=== PATIENT | female | born 1985 | race Caucasian/White ===

== ENCOUNTER 2017-06-18 04:47 | Inpatient (IN) | payer OTHER ==
[~2017-06-18] VITALS: Ht 167.6 cm; Wt 99.5 kg
[2017-06-18] MEDS ORDERED: OXYTOCIN 30U/ 0.9% NaCL 500ML 500 ML IV ONE (05:33)
[2017-06-18] MEDS ORDERED: OXYTOCIN 30U/ 0.9% NaCL 500ML 500 ML IV PRN ×2 (05:33→20:05)
[2017-06-18] MEDS ORDERED: METOCLOPRAMIDE 5 MG/ML, 2ML IVPush PRN (06:00)
[2017-06-18] MEDS ORDERED: CALCIUM CARBONATE 500 MG TAB.CHEW PO PRN (06:00)
[2017-06-18] MEDS ORDERED: PENICILLIN GK 5,000,000 UNITS in DEXTROSE 5% 100 ML IVPB ONE (06:00)
[2017-06-18] MEDS ORDERED: PLEASE ENTER ALLERGIES MC SCH ×2 (06:00)
[2017-06-18] MEDS ORDERED: PLEASE ENTER HEIGHT AND WEIGHT MC SCH (06:00)
[2017-06-18] MEDS ORDERED: FENTANYL PF 100 MCG/2ML IVPush PRN (06:00)
[2017-06-18] MEDS ORDERED: ONDANSETRON 2MG/ML, 2ML IVPush PRN (06:00)
[2017-06-18] MEDS ORDERED: TERBUTALINE 1 MG/ML, 1ML IVPush PRN (06:00)
[2017-06-18] MEDS ORDERED: SODIUM CITRATE/CITRIC ACID 30 ML UDC PO PRN (06:00)
[2017-06-18] MEDS ORDERED: FENTANYL PF 100 MCG/2ML IV PRN (06:00)
[2017-06-18 06:16] LABS: HEMATOCRIT 43.1 % (34.6-47.8); HEMOGLOBIN 14.5 g/dL (11.7-16.4)
[2017-06-18] MEDS ORDERED: PREN1TAB60 PO (07:10)
[2017-06-18] MEDS: PENICILLIN GK 2,500,000 UNITS in DEXTROSE 5% 100 ML IVPB SCH ×4 (10:43→22:43)
[2017-06-18] MEDS: LACTATED RINGERS 1,000 ML IV SCH ×4 (11:58→23:07)
[2017-06-18] MEDS ORDERED: SODIUM CHLORIDE FLUSH 10ML SYR IVF PRN (12:00)
[2017-06-18] MEDS ORDERED: FENTANYL PF 100 MCG/2ML ONE (12:05)
[2017-06-18] MEDS ORDERED: LIDOCAINE/PF 1.5%-EPI 1:200K, 30ML ONE ×2 (12:09→12:10)
[2017-06-18] MEDS ORDERED: FENTANYL/BUPIV./NS/PF 250 ML EPIDCONT ONE ×2 (12:09→12:10)
[2017-06-18] MEDS ORDERED: LIDOCAINE 1%, 20ML ONE (12:10)
[2017-06-18] MEDS ORDERED: NEWBORN KIT ONE (12:53)
[2017-06-18] MEDS ORDERED: OXYTOCIN 30U/ 0.9% NaCL 500ML 500 ML ONE (12:54)
[2017-06-18] MEDS ORDERED: FENTANYL/BUPIV./NS/PF 250 ML EPIDCONT SCH (15:07)
[2017-06-18] MEDS ORDERED: NALOXONE 0.4 MG/ML, 1ML IVPush PRN (15:30)
[2017-06-18] MEDS ORDERED: LACTATED RINGERS 1,000 ML IVBOLUS PRN (15:30)
[2017-06-18] MEDS ORDERED: EPHEDRINE 50 MG/ML, 1ML IVPush PRN (15:30)
[2017-06-18] MEDS: D5%-LACTATED RINGERS 1,000 ML IV SCH ×2 (17:00→21:48)
[2017-06-19] MEDS: LACTATED RINGERS 1,000 ML IV SCH (01:00)
[2017-06-19] MEDS: D5%-LACTATED RINGERS 1,000 ML IV SCH (01:00)
[2017-06-19] MEDS ORDERED: OXYTOCIN 30U/ 0.9% NaCL 500ML 500 ML ONE (01:31)
[2017-06-19] MEDS: OXYTOCIN 30U/ 0.9% NaCL 500ML 500 ML IV SCH ×2 (02:13→12:13)
[2017-06-19] MEDS ORDERED: OXYTOCIN 10 UNITS/ML, 1ML IM PRN (02:30)
[2017-06-19] MEDS ORDERED: MISOPROSTOL 200 MCG TABLET PR PRN (02:30)
[2017-06-19] MEDS ORDERED: METHYLERGONOVINE 0.2 MG/ML IM PRN (02:30)
[2017-06-19] MEDS ORDERED: ONDANSETRON 2MG/ML, 2ML IV PRN (02:30)
[2017-06-19] MEDS ORDERED: HYDROcodone/APAP 5/325 TABLET PO PRN ×2 (02:30)
[2017-06-19 03:40] VITALS: BP 104/68
[2017-06-19 07:55] VITALS: BP 102/64
[2017-06-19 08:42] LABS: HEMATOCRIT 35.5 % (34.6-47.8); WHITE BLOOD COUNT 16.6 x10^3/uL (3.4-10)
[2017-06-19] MEDS: DOCUSATE 100 MG CAPSULE PO PRN (09:06)
[2017-06-19] MEDS: PRENATAL VIT/IRON/FA 1 EACH TABLET PO SCH (09:06)
[2017-06-19] MEDS: IBUPROFEN 600 MG TABLET PO PRN ×2 (09:06→16:09)
[2017-06-19 12:45] VITALS: BP 123/75
[2017-06-19 20:30] VITALS: BP 111/69
[2017-06-19] MEDS ORDERED: DIPH,PERTUSS(ACELL),TET VAC/PF NC IM-VACC ONE (21:30)
[2017-06-20 00:30] VITALS: BP 103/66
[2017-06-20] MEDS: IBUPROFEN 600 MG TABLET PO PRN ×2 (05:25→13:23)
[2017-06-20 07:55] VITALS: BP 116/77
[2017-06-20] MEDS: PRENATAL VIT/IRON/FA 1 EACH TABLET PO SCH (09:04)
[2017-06-20] MEDS: DOCUSATE 100 MG CAPSULE PO PRN (09:04)
[2017-06-20] MEDS ORDERED: IBUP-1222 PO (12:33)
[2017-06-20] MEDS ORDERED: HYDR-3240 PO (12:34)
[2017-06-20] MEDS ORDERED: DOCU-131 PO (12:35)
[2017-06-20] MEDS ORDERED: PREN-3 PO (12:43)
== END 2017-06-20 14:43 | disposition home or self-care (01) | DRG 775 ==
LOC: LDOP 04:47 → LDIP 05:40 → 2NW 06-19 03:29
PROVIDERS: ADMIT Specialist; ATTEND Specialist
PROC: 10E0XZZ Delivery of Products of Conception, External Approach (ICD-10-PCS; principal; 2017-06-19)
PROC: 0HQ9XZZ Repair Perineum Skin, External Approach (ICD-10-PCS; 2017-06-19)
PROC: 3E0S3CZ (ICD-10-PCS; 2017-06-19)
PROC: 00HU33Z Insertion of Infusion Device into Spinal Canal, Percutaneous Approach (ICD-10-PCS; 2017-06-19)
DX: O48.1 Prolonged pregnancy (principal); O99.824 Streptococcus B carrier state complicating childbirth; Z37.0 Single live birth; O70.0 First degree perineal laceration during delivery; O77.0 Labor and delivery complicated by meconium in amniotic fluid; Z3A.41 41 weeks gestation of pregnancy; Z90.49 Acquired absence of other specified parts of digestive tract; Z23 Encounter for immunization
CPT/HCPCS: 36415; 85025; 86850; 86900; 90715; J2540; J3010; J3490; J2590; J7120; J7121